=== PATIENT | female | born 1995 | race Asian ===

== ENCOUNTER 2024-08-30 02:09 | Emergency (ER) | payer SELFPAY ==
[~2024-08-30] VITALS: Ht 165.1 cm; Wt 53.5 kg
[2024-08-30] MEDS ORDERED: NEOMY/BACITRA/POLYMYXIN B OINT UD PACKET TP ONE (02:36)
[2024-08-30] MEDS: NEOMY/BACITRA/POLYMYXIN B OINT UD PACKET TP ONE (02:39)
[2024-08-30 03:14] VITALS: BP 114/70; TEMP 98; O2SAT 99
== END 2024-08-30 03:15 | disposition home or self-care (01) ==
LOC: ER 02:18
DX: S01.81XA Laceration without foreign body of other part of head, initial encounter (principal); W01.198A Fall on same level from slipping, tripping and stumbling with subsequent striking against other object, initial encounter; Y93.89 Activity, other specified; Y92.89 Other specified places as the place of occurrence of the external cause; Y99.8 Other external cause status
CPT/HCPCS: A4606; A4663